=== PATIENT | female | born 2000 | race Caucasian/White ===

== ENCOUNTER 2020-04-23 22:32 | Emergency (ER) | payer OTHER ==
[~2020-04-23] VITALS: Ht 162.6 cm; Wt 69.3 kg
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
[2020-04-23 22:47] VITALS: BP 125/68
[2020-04-23] MEDS ORDERED: IV RINGERS SOLUTION,LACTATED 1,000 ML IV SCH (22:47)
[2020-04-23 23:42] LABS: BASO # 0.1 x10^3/uL (0.0-0.2); BASO % 1 % (0-3); EOS # 0.2 x10^3/uL (0.0-0.7); EOS % 2 % (0-3); HEMATOCRIT 41.2 % (36.0-47.0); LYMPH # 3.3 x10^3/uL (1.0-4.8); LYMPH % 38 % (24-48); MEAN CORPUSCULAR HEMOGLOBIN 31 pg (25-35); MEAN CORPUSCULAR HGB CONC 34 g/dL (31-37); MEAN CORPUSCULAR VOLUME 92 fL (79-100); MONO # 0.6 x10^3/uL (0.0-1.1); MONO % 7 % (0-9); NEUT # 4.4 x10^3uL (1.8-7.7); NEUT % 51 % (31-73); PLATELET COUNT 379 x10^3/uL (140-400); RED BLOOD COUNT 4.48 x10^6/uL (3.50-5.40); RED CELL DISTRIBUTION WIDTH 13.2 % (11.5-14.5); WHITE BLOOD COUNT 8.7 x10^3/uL (4.0-11.0)
[2020-04-23 23:52] LABS: CALCIUM 9.2 mg/dL (8.5-10.1); CREATININE 0.7 mg/dL (0.6-1.0); GFR 107.8; POTASSIUM 3.9 mmol/L (3.5-5.1)
[2020-04-23 23:52] LABS: BARBITURATES NEG (NEG); BENZODIAZEPINES NEG (NEG); CANNABINOIDS NEG (NEG); COCAINE NEG (NEG); METHADONE NEG (NEG); OPIATES POS (NEG); PHENCYCLIDINE NEG (NEG)
[2020-04-23 23:53] LABS: BACTERIA,URINE 0 /HPF (0-FEW); BILIRUBIN,URINE NEG (NEG); CLARITY,URINE CLEAR; COLOR,URINE YELLOW; GLUCOSE,URINE NEG (NEG); NITRITE,URINE NEG (NEG); SQUAMOUS EPITHELIAL CELL,UR OCC /LPF; UROBILINOGEN,URINE 0.2 mg/dL (0.2 mg/dL); WBC,URINE OCC /HPF (0-4)
[2020-04-23 23:56] LABS: AMPHETAMINE/METHAMPHETAMINE NEG (NEG)
[2020-04-23 23:58] LABS: ALBUMIN 3.8 g/dL (3.4-5.0); DIRECT BILIRUBIN 0.1 mg/dL (0.0-0.2); TOTAL BILIRUBIN 0.3 mg/dL (0.2-1.0); TOTAL PROTEIN 7.3 g/dL (6.4-8.2)
[2020-04-24] MEDS ORDERED: KETOROLAC 30 MG/ML VIAL. ONE (00:51)
[2020-04-24] MEDS ORDERED: KETOROLAC 30 MG/ML VIAL. IVP ONE (01:00)
[2020-04-24 16:07] LABS: ESTRADIOL LEVEL 98.7 pg/mL (.); FSH 3.8 mIU/mL (.); TESTOSTERONE TOTAL 11 ng/dL (.)
[2020-04-25 18:07] LABS: CHLAMYDIA PROBE Negative (Negative)
== END 2020-04-24 01:00 | disposition home or self-care (01) ==
LOC: ER 22:32
DX: N93.8 Other specified abnormal uterine and vaginal bleeding (principal); R10.84 Generalized abdominal pain
CPT/HCPCS: 36415; 80048; 80076; 80307; 81001; 82150; 82670; 83001; 83690; 84146; 84403; 84443; 84702; 85025; 85610; 85730; 86850; 86900; 86901; 87491; 87591; 96374; 99283; J1885; J7120; Q0111; 96372

== ENCOUNTER 2021-02-01 13:52 | Emergency (ER) | payer OTHER ==
[~2021-02-01] VITALS: Ht 162.6 cm; Wt 69.3 kg
--- NOTE | 2021-02-01 14:06 | PHYS DOC ---
Past History Past Medical History: No Pertinent History Past Surgical History: Tonsillectomy, Other Additional Past Surgical Histo: wisdom tooth extraction Alcohol Use: None Adult General Chief Complaint Chief Complaint: MULTIPLE COMPLAINTS HPI HPI Patient is a 20-year-old female presents emergency department complaining of being late for her menstrual cycle by a week. Patient states she should have had her menstrual cycle start on 01/25/2021. However it did not. Patient states her last normal menstrual cycle was December [id number], lasted 5 days with normal duration of flow. Patient states she has never missed her period or had an abnormal menstrual cycle. Patient denies a family history of PCOS or other menstrual cycle problems. Denies any family history of uterine cancers. Patient states she took a test at home 5 days ago that was negative, patient states she went to the [facility] today and had a negative blood test for . Patient states she was told to go to the emergency department by the [facility] for a urine test and urinalysis for urinary tract infection. The patient denies any vaginal discharge, denies STI concerns, states she is monogamous, has unprotected sex, does not use control. Patient reports a 4/10 discomfort lower abdomen, states she has had urinary frequency for the past 5 to 6 days. Patient denies any other urinary tract infection signs and symptoms. Patient denies smoking cigarettes, drinking alcohol, using illicit drugs. Patient denies any allergies to medications, states she takes no prescription medications at home. Review of Systems Review of Systems 14 body systems of review of systems have been reviewed. See HPI for pertinent positives and negative responses, otherwise all other systems are negative, nonpertinent or noncontributory. Allergies Allergies Allergies Coded Allergies Type Severity Reaction Last Updated Verified No Known Drug Allergies 04/23/20 No Physical Exam Physical Exam Constitutional: Well developed, well nourished, no acute distress, non-toxic appearance. 20-year-old female in no apparent distress. HENT: Normocephalic, atraumatic, bilateral external ears normal, oropharynx moist, no oral exudates, nose normal. Oropharynx moist, pink, no signs of infectious process appreciated, no lymphadenopathy of the head or neck appreciated, no drooling, no trismus. Eyes: PERRLA, EOMI, conjunctiva normal, no discharge. Neck: Normal range of motion, no tenderness, supple, no stridor. No meningismus signs, no nuchal rigidity appreciated. Cardiovascular:Heart rate regular rhythm, no murmur, heart sounds S1-S2 to auscultation. Lungs & Thorax: Bilateral breath sounds clear to auscultation all lung doe, no adventitious lung sounds appreciated. Abdomen: Bowel sounds normal, soft, no tenderness, no masses, no pulsatile masses. Except for low suprapubic central pain to palpation. No rebound tenderness, no McBurney's point tenderness, no psoas sign, no Gilliam sign. No ecchymosis of the abdomen appreciated, no abdominal scars appreciated. Skin is intact, no rashes appreciated of the abdomen. Skin: Warm, dry, no erythema, no rash. Back: No tenderness, no CVA tenderness. Extremities: No tenderness, no cyanosis, no clubbing, ROM intact, no edema. Neurologic: Alert and oriented X 3, normal motor function, normal sensory function, no focal deficits noted. Psychologic: Affect normal, judgement normal, mood normal. EKG EKG [] Radiology/Procedures Radiology/Procedures [] Heart Score C/O Chest Pain: No Risk Factors: Risk Factors: DM, Current or recent (<one month) smoker, HTN, HLP, family history of CAD, obesity. Risk Scores: Risk Factors: DM, Current or recent (<one month) smoker, HTN, HLP, family history of CAD, obesity. Course & Med Decision Making Course & Med Decision Making Pertinent Labs and Imaging studies reviewed. (See chart for details) 20-year-old female, vital signs reviewed, presents to the emergency department concerning for being late on her menstrual cycle. Physical examination concerning for possible urinary tract infection versus versus acute abdominal infectious process. Will obtain CBC, BMP, urinalysis assay, urine test. Patient's urine was not infected, urine test was negative, CBC and BMP nonconcerning. This is unlikely an infectious process of the abdomen. Upon reevaluation of the patient, patient now states she has some vaginal discharge that has been normal for her. Discussed and recommended pelvic exam, patient states she will self swab for any cultures, states she does not feel she has an STI, and has no STI concerns. Ordered wet prep, vaginitis panel, GC chlamydia swab, patient will self swab. Reexamination of patient's low abdominal pain, there was no left-sided or right-sided pelvic pain, pain is centrally located just above symphysis pubis. Wet prep showed yeast, negative for clue cells, this is unlikely a PID exacerbation related to no clue cells present and patient physical presentation. Vaginitis panel pending, GC chlamydia results pending, unlikely a GC/chla mydial infection, however discussed with patient findings of yeast infection, patient aware that she will be contacted if GC/chlamydia infection is positive, states she does not want treated at this time as she is confident she does not have either of those infectious processes. Discussed with patient will treat with Diflucan p.o. prescription. Patient gave verbal understanding of discharge home instructions, follow-up with WORK COUNSELOR, patient given an WORK COUNSELOR to follow-up with, gave verbal understanding of return to ER precautions and concerns, prescription Diflucan use, had no further questions or concerns, was discharged home without incident. Dragon Disclaimer Dragon Disclaimer This electronic medical record was generated, in whole or in part, using a voice recognition dictation system. Departure Departure: Impression: Primary Impression: Missed menses Additional Impression: Vaginal yeast infection Disposition: 01 DC HOME SELF CARE/HOMELESS Condition: GOOD Referrals: PCP,NO (PCP) CHANTE DRIVER MD Patient Instructions: Candidal Vulvovaginitis, [id number] Additional Instructions: You are seen today for a missed menstrual cycle, your urine was not infected, you are not , the obtained vaginal cultures were positive for a yeast infection. Please take medication as prescribed. I have given you a WORK COUNSELOR specialist to follow-up with related to your missed menstrual cycle, I encourage you to make an appointment soon for evaluation. Please return to the emergency department for worsening symptoms or other concerns. Scripts Fluconazole (DIFLUCAN) 150 Mg Tablet 1 TAB PO ONCE for YEAST INFECTION, #1 TAB 1 Refill Prov: CHANTE BARRON APRN 02/01/21 Problem Qualifiers CHANTE BARRON APRN Feb 01, 2021 14:06
[2021-02-01 14:10] VITALS: BP 106/58
[2021-02-01] MEDS ORDERED: KETOROLAC 30 MG/ML VIAL. IVP ONE (14:30)
[2021-02-01 14:41] LABS: U PREG PATIENT NEGATIVE (NEG)
[2021-02-01 14:48] LABS: BASO # 0.1 x10^3/uL (0.0-0.2); BASO % 1 % (0-3); EOS # 0.1 x10^3/uL (0.0-0.7); EOS % 1 % (0-3); HEMATOCRIT 40.5 % (36.0-47.0); HEMOGLOBIN 13.7 g/dL (12.0-15.5); LYMPH # 2.9 x10^3/uL (1.0-4.8); LYMPH % 35 % (24-48); MEAN CORPUSCULAR HEMOGLOBIN 31 pg (25-35); MEAN CORPUSCULAR HGB CONC 34 g/dL (31-37); MEAN CORPUSCULAR VOLUME 91 fL (79-100); MONO # 0.4 x10^3/uL (0.0-1.1); MONO % 5 % (0-9); NEUT # 4.7 x10^3uL (1.8-7.7); NEUT % 58 % (31-73); PLATELET COUNT 416 x10^3/uL (140-400); RED BLOOD COUNT 4.46 x10^6/uL (3.50-5.40); RED CELL DISTRIBUTION WIDTH 13.3 % (11.5-14.5); WHITE BLOOD COUNT 8.2 x10^3/uL (4.0-11.0)
[2021-02-01 14:50] LABS: CALCIUM 9.2 mg/dL (8.5-10.1); CREATININE 0.7 mg/dL (0.6-1.0); GFR 106.7; POTASSIUM 3.8 mmol/L (3.5-5.1)
[2021-02-01 14:53] LABS: BACTERIA,URINE 0 /HPF (0-FEW); BILIRUBIN,URINE NEG (NEG); CLARITY,URINE CLEAR; COLOR,URINE YELLOW; GLUCOSE,URINE NEG (NEG); NITRITE,URINE NEG (NEG); RBC,URINE 0 /HPF (0-2); SQUAMOUS EPITHELIAL CELL,UR OCC /LPF; UROBILINOGEN,URINE 0.2 mg/dL (0.2 mg/dL); WBC,URINE 0 /HPF (0-4)
[2021-02-01] MEDS ORDERED: ONDANSETRON PF 4 MG/2 ML VIAL. IVP ONE (15:15)
[2021-02-01] MEDS ORDERED: FLUC150T PO (16:54)
[2021-02-02 20:07] LABS: CHLAMYDIA PROBE Negative (Negative)
== END 2021-02-01 17:11 | disposition home or self-care (01) ==
LOC: ER 13:52
DX: N91.2 Amenorrhea, unspecified (principal); B37.3 Candidiasis of vulva and vagina
CPT/HCPCS: 36415; 80048; 81001; 81025; 85025; 87480; 87491; 87510; 87591; 87660; 96374; 96375; 99284; J1885; J2405; Q0111

== ENCOUNTER → 2021-06-15 | Outpatient (CLI) | payer OTHER ==
[~2021-06-15] MED LIST: FLUC150T PO
--- NOTE | 2021-06-15 15:45 | RAD ---
EXAM: Pelvic sonogram. HISTORY: Pain. TECHNIQUE: Sonographic imaging of the pelvis was performed. COMPARISON: None. FINDINGS: The uterus measures 8.6 x 5.5 x 3.9 cm. There is an IUD in expected position within the end ometrial cavity. This obscures the endometrial stripe. There is no endometrial thickening. The ovarie s are normal in size and demonstrate normal blood flow. There is no pelvic free fluid. IMPRESSION: 1. IUD in expected position. 2. Suspected thin endometrial stripe. Electronically signed by: Beti Ang MD (06/15/2021 3:42 PM) [id number]
== END ==
LOC: US 14:47
PROVIDERS: ATTEND Obstetrics & Gynecology
DX: R10.2 Pelvic and perineal pain (principal)
CPT/HCPCS: 76856

== ENCOUNTER 2021-10-27 15:16 | Emergency (ER) | payer OTHER ==
[~2021-10-27] VITALS: Ht 162.6 cm; Wt 69.1 kg
[2021-10-27] MEDS ORDERED: ONDANSETRON ODT 4 MG TAB.RAPDIS PO ONE (16:00)
--- NOTE | 2021-10-27 16:32 | PHYS DOC ---
Past History Past Medical History: No Pertinent History Past Surgical History: Tonsillectomy, Other Additional Past Surgical Histo: wisdom tooth extraction Additional Smoking Information: VAPES Alcohol Use: Occasionally General Adult EDM: Chief Complaint: NAUSEA/VOMITING/DIARRHEA HPI: HPI: 21-year-old female presents with cough, congestion, fatigue and recent exposure to a person who is COVID-19 positive. The patient was vaccinated against COVID- 19 x2. She has not had a significant fever. Her boyfriend has had similar symptoms for 2 to 3 days. Patient denies loss of taste or smell. She has no other specific complaints at this time. Review of Systems: Review of Systems: Constitutional: Denies fever or chills. Fatigue, body aches Eyes: Denies change in visual acuity HENT: Denies nasal congestion or sore throat Respiratory: Denies cough or shortness of breath Cardiovascular: Denies chest pain or edema GI: Denies abdominal pain, nausea, vomiting, bloody stools or diarrhea : Denies dysuria Musculoskeletal: Denies back pain or joint pain Integument: Denies rash Neurologic: Headache. Denies focal weakness or sensory changes Endocrine: Denies polyuria or polydipsia Lymphatic: Denies swollen glands Psychiatric: Denies depression or anxiety Current Medications: Current Meds: Current Medications Medications (Trade) Dose Ordered Sig/Norma Start Time Stop Time Status Last Admin Dose Admin Ondansetron HCl (Zofran Odt) 4 mg 1X ONCE 10/27/21 16:00 10/27/21 16:01 DC 10/27/21 15:56 4 MG Allergies: Allergies: Allergies Coded Allergies Type Severity Reaction Last Updated Verified No Known Drug Allergies 04/23/20 No Physical Exam: PE: Constitutional: Well developed, well nourished, no acute distress, non-toxic appearance. [] HENT: Normocephalic, atraumatic, bilateral external ears normal, oropharynx moist, no oral exudates, nose normal. [] Eyes: PERRLA, EOMI, conjunctiva normal, no discharge. [] Neck: Normal range of motion, no tenderness, supple, no stridor. [] Cardiovascular:Heart rate regular rhythm, no murmur [] Lungs & Thorax: Bilateral breath sounds clear to auscultation [] Abdomen: Bowel sounds normal, soft, no tenderness, no masses, no pulsatile masses. [] Skin: Warm, dry, no erythema, no rash. [] Back: No tenderness, no CVA tenderness. [] Extremities: No tenderness, no cyanosis, no clubbing, ROM intact, no edema. [] Neurologic: Alert and oriented X 3, normal motor function, normal sensory function, no focal deficits noted. [] Psychologic: Affect normal, judgement normal, mood normal. [] Current Patient Data: Vital Signs: Vital Signs Date Time Temp Pulse Resp B/P (MAP) Pulse Ox O2 Delivery O2 Flow Rate FiO2 10/27/21 15:30 98.5 86 20 107/60 (76) 99 Room Air EKG: EKG: [] Radiology/Procedures: Radiology/Procedures: [] Heart Score: C/O Chest Pain: N/A Risk Factors: Risk Factors: DM, Current or recent (<one month) smoker, HTN, HLP, family history of CAD, obesity. Risk Scores: Score 0 - 3: 2.5% MACE over next 6 weeks - Discharge Home Score 4 - 6: 20.3% MACE over next 6 weeks - Admit for Clinical Observation Score 7 - 10: 72.7% MACE over next 6 weeks - Early Invasive Strategies Course & Med Decision Making: Course & Med Decision Making Pertinent Labs and Imaging studies reviewed. (See chart for details) The patient's rapid influenza is negative. This is likely COVID-19 or another viral illness. She is stable for discharge at this time. [] Isabelleon Disclaimer: Dragon Disclaimer: This electronic medical record was generated, in whole or in part, using a voice recognition dictation system. Departure Departure: Impression: Primary Impression: Suspected 2019 novel coronavirus infection Disposition: HOME / SELF CARE / HOMELESS Condition: STABLE Referrals: PCP,NO (PCP) Patient Instructions: Upper Respiratory Infection, Adult, [id number] Additional Instructions: You have been tested for or diagnosed with COVID-19. It is an infection caused by a new type of coronavirus. COVID-19 will cause cold-like or mild flu symptoms in most. It can cause more severe symptoms like problems breathing in some. There is no treatment for COVID-19. The body will clear the infection over time. Self-care will help to ease discomfort. Steps to Take: Self-Care Rest as needed. Healthy habits may help you feel better. Steps include: Choose healthy foods including fruits and vegetables. Drink water throughout the day. Get plenty of sleep each night. If you smoke, try to quit. It may ease breathing. Avoid alcohol. Keep Others Healthy The virus can spread to others. Droplets are released every time you sneeze or cough. The droplets can get into the mouth, nose, or eyes of people near you and lead to infection. To lower the chances of spreading COVID-19 to others: Stay at home until your doctor has said it is safe to leave. If you tested positive this will mean staying isolated until both of the following are true: At least 7 days have passed since the start of illness. You are free of fever for at least 72 hours without the use of medicine. During this time: - Avoid public areas, events, or transportation. Do not return to work or [employer] until your doctor has said it is safe to do so. - Call ahead if you need to go to a medical center. Let them know you may have COVID-19. It will help them guide you where to go. They may also ask you to wear a facemask when you come to the office. - If you call for emergency medical services, let them know you may have COVID- 19. While at home: - Try to avoid close contact with others. Stay about 6 feet away. - If possible, spend most of your time in a separate room from others. - Use a face mask if you will be in close contact with others such as sharing a room or vehicle. - Have someone wipe down common surfaces in the home. Use household chief merchandising officer every day on areas like doorknobs, counters, or sinks. - Cough or sneeze into a tissue. Throw the tissue away right after use. If a tissue is not available, cough or sneeze into your elbow. - Wash your hands often. Wash them after sneezing or coughing. Use soap and water and wash for at least 20 seconds. Alcohol based hand spot cleaner can be used if soap and water is not available. - Do not prepare food for others. Avoid sharing personal items like forks, spoons, or toothbrushes. - Avoid close contact with pets while you are sick. There is no evidence of the virus passing to pets. This is a safety step until more is known about this virus. Isolation can be frustrating. Social interaction can help. Keep in touch with fr iends and family through phone and tech options. You can still interact with others in your home, just keep a safe distance of about 6 feet. Follow-up: Your doctors office will check in with you to see if there are any changes in your health. You may be asked to keep track of symptoms to share with them. They will also let you know when you are clear to be in public again. Problems to Look Out For: Contact your doctor if your recovery is not going as you expect. Get emergency care if you have problems such as: - Trouble breathing - Nonstop chest pain or pressure - Changes in awareness, confusion, or problems waking - Lips or face have bluish color - Worsening of symptoms If you think you have an emergency, call for emergency medical services right away. As taken from [facility] DEBBI FRAIRE DO Oct 27, 2021 16:32
[2021-10-27 16:36] LABS: INFLUENZA A PATIENT NEGATIVE (NEGATIVE); INFLUENZA B PATIENT NEGATIVE (NEGATIVE)
[2021-10-27 17:15] VITALS: BP 113/52
== END 2021-10-27 17:15 | disposition home or self-care (01) ==
LOC: ER 15:16
DX: R05.9 Cough, unspecified (principal); R09.81 Nasal congestion; R53.83 Other fatigue; R51.9 Headache, unspecified; F17.200 Nicotine dependence, unspecified, uncomplicated; Z20.822 Contact with and (suspected) exposure to COVID-19
CPT/HCPCS: 87804; 99283; C9803; Q0162; U0003